=== PATIENT | female | born 1950 | race African-American/Black ===

== ENCOUNTER 2017-05-04 10:43 | Emergency (ER) | payer MEDICARE, MEDICAID ==
[~2017-05-04] VITALS: Ht 167.6 cm; Wt 82.0 kg
[2017-05-04 11:17] VITALS: BP 153/82
[2017-05-04] MEDS ORDERED: ACETAMINOPHEN 325MG TABLET PO ONE (15:15)
== END 2017-05-04 17:34 | disposition left against medical advice (07) ==
LOC: ER 14:26
DX: M79.601 Pain in right arm (principal); Z53.21 Procedure and treatment not carried out due to patient leaving prior to being seen by health care provider

== ENCOUNTER 2017-05-06 06:52 | Emergency (ER) | payer MEDICARE, MEDICAID ==
[~2017-05-06] VITALS: Ht 170.2 cm; Wt 82.0 kg
[2017-05-06 07:49] VITALS: BP 123/61
[2017-05-06] MEDS ORDERED: ACETAMINOPHEN 325MG TABLET PO ONE (08:00)
== END 2017-05-06 09:03 | disposition home or self-care (01) ==
LOC: ER 07:51
DX: M25.511 Pain in right shoulder (principal); M25.562 Pain in left knee; I10 Essential (primary) hypertension; W01.198A Fall on same level from slipping, tripping and stumbling with subsequent striking against other object, initial encounter; Y93.89 Activity, other specified; Y92.89 Other specified places as the place of occurrence of the external cause; Y99.8 Other external cause status
CPT/HCPCS: 73030; 73562; 99284